=== PATIENT | male | born 1980 | race Caucasian/White ===

== ENCOUNTER 2018-09-16 23:58 | Emergency (ER) | payer SELFPAY ==
[~2018-09-16] VITALS: Ht 175.3 cm; Wt 65.8 kg
[2018-09-17 00:05] VITALS: BP 128/89
--- NOTE | 2018-09-17 03:03 | PHYS DOC ---
Adult General Chief Complaint Chief Complaint: DRUG ABUSE HPI HPI Patient is a 38-year-old male who presents with reported methamphetamine use earlier today. He states that he had just been released from [facility] and is on parole but went ahead and used methamphetamine. He states that he was planning on using again later this afternoon but then changed his mind and thought that he should come into the hospital to try to get placement for rehabilitation. Patient reports that he has an appointment with his classification officer tomorrow and is concerned that he has been using methamphetamine. He denies any homicidal or suicidal ideations. Patient is somewhat guarded to providing additional history and so additional history is limited. Review of Systems Review of Systems Constitutional: Denies fever or chills [] Respiratory: Denies cough or shortness of breath [] Cardiovascular: No additional information not addressed in HPI [] GI: Denies abdominal pain, nausea, vomiting or diarrhea [] Neurologic: Denies headache, focal weakness or sensory changes [] Psychiatric: Positive anxiety[] Unable to fully assess review of systems as patient is guarded in answering questions. Physical Exam Physical Exam Constitutional: Well developed, well nourished, no acute distress, very anxious on exam. [] HENT: Normocephalic, atraumatic, bilateral external ears normal, oropharynx moist, no oral exudates, nose normal. [] Eyes: PERRLA, EOMI, conjunctiva normal, no discharge. [] Neck: Normal range of motion, no tenderness, supple, no stridor. [] Cardiovascular: Tachycardic rate with regular rhythm[] Lungs & Thorax: Bilateral breath sounds clear to auscultation [] Abdomen: Bowel sounds normal, soft, no tenderness. [] Skin: Warm, dry, no erythema, no rash. [] Extremities: No tenderness, no cyanosis, no clubbing, ROM intact, no edema. [] Neurologic: Alert and oriented 3, no focal deficits noted. [] EKG EKG [] Radiology/Procedures Radiology/Procedures [] Course & Med Decision Making Course & Med Decision Making Pertinent Labs and Imaging studies reviewed. (See chart for details) After evaluation of patient, a mental health workup had been ordered. When death claim clerk had gone in to see patient, patient very apprehensive about answering additional questioning to death claim clerk and patient refused to sign registration paperwork. Patient's nurse along with ER physician and supervisor steffen house attempted on multiple occasions to explain paperwork that patient would needs to sign; however, patient continued to refuse to sign paperwork. Patient remained in emergency room for nearly 2-1/2 hours without signing paperwork and was ultimately informed that we would not be able to perform additional evaluation without signing paperwork and patient left the department AGAINST MEDICAL ADVICE. Dragon Disclaimer Dragon Disclaimer This electronic medical record was generated, in whole or in part, using a voice recognition dictation system. Departure Departure: Impression: Primary Impression: Methamphetamine abuse Disposition: 07 AGAINST MEDICAL ADVICE Condition: STABLE Referrals: PCP,NO (PCP) JOSE GALARZA Jr. DO Sep 17, 2018 03:03
== END 2018-09-17 02:20 | disposition left against medical advice (07) ==
LOC: ER 23:58
DX: F15.10 Other stimulant abuse, uncomplicated (principal)
CPT/HCPCS: 99281

== ENCOUNTER 2020-03-17 02:42 | Emergency (ER) | payer SELFPAY ==
[~2020-03-17] VITALS: Ht 175.3 cm; Wt 64.5 kg
--- NOTE | 2020-03-17 02:44 | PHYS DOC ---
Past History Past Medical History: Anxiety, Bipolar, Depression, Schizophrenia Past Surgical History: No Surgical History Smoking: Cigarettes Alcohol Use: Occasionally Drug Use: Amphetamine, Marijuana, Methadone, Methamphetamine General Adult HPI: HPI: ".. I am messed up.. probably need to get on program.. get back into counseling center. .. I am having hallucinations.. and paranoid...." Patient is a 39 year old male who presents with above hx and complaints of hallucinations. Patient's hallucinations consist of auditory as well as visual.. Patient also having delusions of persecution and that people are out to get him. Patient has been seen in the past for his drug abuse history. Last such visit was 09/16/2018 for methamphetamine abuse. Patient in the past has followed at the counseling center. Patient has not Follow-up at the counseling center or with a primary care. Patient does admit to methamphetamine use the last 24 hours. Pt. admits to 'shooting up meth" tonight, several " dimes". Patient is speech is pressured, and very anxious. Patient denies any fever or chills. Patient denies any history of immunosuppression. Patient denies any trauma. No recent travel outside the [place] area. Does admit to noncompliance with previous drug rehab programs and has follow-ups at the counseling center. Review of Systems: Review of Systems: Constitutional: Denies fever or chills Eyes: Denies change in visual acuity HENT: Denies nasal congestion or sore throat Respiratory: Denies cough or shortness of breath Cardiovascular: Denies chest pain or edema GI: Denies abdominal pain, nausea, vomiting, bloody stools or diarrhea : Denies dysuria Musculoskeletal: Denies back pain or joint pain Integument: Denies rash Neurologic: Denies headache, focal weakness or sensory changes Endocrine: Denies polyuria or polydipsia Lymphatic: Denies swollen glands Psychiatric: Complains of anxiety, hallucinations, Heart Score: HEART Score for Chest Pain: HEART Score for Chest Pain Response (Comments) Value History Slighlty/Non-Suspicious 0 ECG Nonspecific Repolarizatio 1 Age < 45 0 Risk Factors 1 or 2 Risk Factors 1 Troponin < Normal Limit 0 Total 2 Risk Factors: Risk Factors: DM, Current or recent (<one month) smoker, HTN, HLP, family history of CAD, obesity. Risk Scores: Score 0 - 3: 2.5% MACE over next 6 weeks - Discharge Home Score 4 - 6: 20.3% MACE over next 6 weeks - Admit for Clinical Observation Score 7 - 10: 72.7% MACE over next 6 weeks - Early Invasive Strategies Family History: Family History: Noncontributory to presentation. Current Medications: Current Meds: See nursing for home meds Allergies: Allergies: No known drug allergies Physical Exam: PE: Constitutional: In acute emotional distress, non-toxic appearance. [] HENT: Normocephalic, atraumatic, bilateral external ears normal, oropharynx moist, no oral exudates, nose normal. [] Eyes: PERRLA, EOMI, conjunctiva normal, no discharge. [] Neck: Normal range of motion, no tenderness, supple, no stridor. [] Cardiovascular: Tachycardia heart rate regular rhythm, no murmur [] Lungs & Thorax: Bilateral breath sounds equal apex with scattered wheezes auscultation [] Abdomen: Bowel sounds normal, soft, no tenderness, no masses, no pulsatile masses. [] Skin: Warm, dry, no erythema, no rash. Tattoos. Fresh injection sites antecubital spaces. Back: No tenderness, no CVA tenderness. [] Extremities: No tenderness, no cyanosis, no clubbing, ROM intact, no edema. [] Neurologic: Alert and oriented X 3, normal motor function, normal sensory function, no focal deficits noted. DTRs +2 patellar brachial. Moves all extremities on request. Mild tremor Psychologic: Affect anxious, judgement normal, mood depressed, complaints of hallucinations both auditory and visual. Complaints of delusions of persecution-paranoid EKG: EKG: My interpretation EKG shows a sinus tachycardia 117 bpm. No findings acute STEMI or contralateral changes. [] Radiology/Procedures: Radiology/Procedures: My interpretation of chest x-ray shows no findings of acute cardiopulmonary changes. No pneumothorax. Some flattening of the diaphragm. Hyperexpanded. [] Course & Med Decision Making: Course & Med Decision Making Pertinent Labs and Imaging studies reviewed. (See chart for details) Patient is to stop using methamphetamine. Patient follow-up with counseling center. Patient to resume his schizophrenic meds. Patient follow-up with primary care. Impression: 1. IV methamphetamine abuse 2. Tobacco and marijuana use 3. History of schizophrenia and schizoaffective disorder 4. History of noncompliance with medical regimens 5. Mild elevation total bilirubin 1.8 and direct 0.4 6. Mild elevation in leukocytosis 13.7 7. Hallucinations after most recent methamphetamine IV use [] Dragon Disclaimer: Dragon Disclaimer: This electronic medical record was generated, in whole or in part, using a voice recognition dictation system. Departure Departure: Disposition: 01 HOME/RESIDENCE PRIOR TO ADM Condition: STABLE Referrals: PCP,NO (PCP) Dragon Disclaimer This chart was dictated in whole or in part using Voice Recognition software in a busy, high-work load, and often noisy Emergency Department environment. It may contain unintended and wholly unrecognized errors or omissions. Dragon Disclaimer This chart was dictated in whole or in part using Voice Recognition software in a busy, high-work load, and often noisy Emergency Department environment. It may contain unintended and wholly unrecognized errors or omissions. RUCHI PALOMO MD Mar 17, 2020 02:44
[2020-03-17] MEDS ORDERED: IV RINGERS SOLUTION,LACTATED 1,000 ML IV SCH (03:00)
--- NOTE | 2020-03-17 03:07 | RAD ---
Chest AP portable at 0217: Reason for examination: Dyspnea The heart size is normal. Mediastinum is unremarkable. Lung riggs are clear. No acute bony abnormalities are seen. Impression: No acute cardiopulmonary disease. Electronically signed by: Mag Yoon MD (03/17/2020 3:04 AM) EPI
[2020-03-17] MEDS ORDERED: OLANZapine 2.5 MG TABLET PO ONE (03:45)
[2020-03-17] MEDS ORDERED: diphenhydrAMINE HCL 25 MG CAPSULE PO ONE (03:45)
[2020-03-17 03:49] LABS: CALCIUM 8.9 mg/dL (8.5-10.1); CREATININE 1.3 mg/dL (0.7-1.3); GFR 61.8; POTASSIUM 3.5 mmol/L (3.5-5.1)
[2020-03-17 03:52] LABS: BASO % 0 % (0-3); EOS % 0 % (0-3); HEMATOCRIT 41.9 % (39.0-53.0); LYMPH % 15 % (24-48); MEAN CORPUSCULAR HEMOGLOBIN 30 pg (25-35); MEAN CORPUSCULAR HGB CONC 33 g/dL (31-37); MEAN CORPUSCULAR VOLUME 89 fL (79-100); MONO # 1.1 x10^3/uL (0.0-1.1); MONO % 8 % (0-9); NEUT # 10.5 x10^3uL (1.8-7.7); NEUT % 77 % (31-73); PLATELET COUNT 272 x10^3/uL (140-400); RED BLOOD COUNT 4.69 x10^6/uL (4.30-5.70); RED CELL DISTRIBUTION WIDTH 14.1 % (11.5-14.5); WHITE BLOOD COUNT 13.7 x10^3/uL (4.0-11.0)
[2020-03-17 03:53] LABS: ALBUMIN 4.4 g/dL (3.4-5.0); DIRECT BILIRUBIN 0.4 mg/dL (0.0-0.2); MAGNESIUM 2.1 mg/dL (1.8-2.4); TOTAL BILIRUBIN 1.8 mg/dL (0.2-1.0); TOTAL PROTEIN 7.3 g/dL (6.4-8.2)
[2020-03-17 03:54] LABS: BARBITURATES NEG (NEG); BENZODIAZEPINES NEG (NEG); CANNABINOIDS NEG (NEG); COCAINE NEG (NEG); METHADONE NEG (NEG); OPIATES NEG (NEG); PHENCYCLIDINE NEG (NEG)
--- NOTE | 2020-03-17 03:59 | EKG ---
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
[2020-03-17 04:00] LABS: BILIRUBIN,URINE NEG (NEG); CLARITY,URINE CLEAR; COLOR,URINE AMBER; GLUCOSE,URINE NEG (NEG)
[2020-03-17 04:01] LABS: BACTERIA,URINE FEW /HPF (0-FEW); NITRITE,URINE POS (NEG); RBC,URINE OCC /HPF (0-2); UROBILINOGEN,URINE 0.2 mg/dL (0.2 mg/dL); WBC,URINE OCC /HPF (0-4)
[2020-03-17 04:08] LABS: AMPHETAMINE/METHAMPHETAMINE POS (NEG)
[2020-03-17 05:13] VITALS: BP 106/65
[2020-03-17] MEDS ORDERED: LIDOCAINE 1% Multi-Dose 20 ML VIAL. ONE (22:40)
[2020-03-18 12:36] LABS: SQUAMOUS EPITHELIAL CELL,UR FEW /LPF
== END 2020-03-17 05:12 | disposition home or self-care (01) ==
LOC: ER 02:42
DX: F15.10 Other stimulant abuse, uncomplicated (principal); D72.829 Elevated white blood cell count, unspecified; E80.6 Other disorders of bilirubin metabolism; F25.9 Schizoaffective disorder, unspecified; R44.1 Visual hallucinations; F41.9 Anxiety disorder, unspecified; F31.9 Bipolar disorder, unspecified; F12.10 Cannabis abuse, uncomplicated; F19.10 Other psychoactive substance abuse, uncomplicated
CPT/HCPCS: 36415; 71045; 80048; 80076; 80307; 81001; 82550; 83735; 84484; 85025; 85610; 85730; 87086; 93005; 96360; 99285; G0480; J7120; Q0163

== ENCOUNTER 2020-03-18 22:18 | Emergency (ER) | payer SELFPAY ==
[~2020-03-18] VITALS: Ht 175.3 cm; Wt 64.5 kg
--- NOTE | 2020-03-18 22:23 | PHYS DOC ---
Past History Past Medical History: Anemia, Anxiety, Bipolar, Bronchitis, Depression, Schizophrenia (RUCHI PALOMO MD) Past Surgical History: No Surgical History (RUCHI PALOMO MD) Smoking: Cigarettes Alcohol Use: Occasionally Drug Use: Amphetamine, Marijuana, Methadone, Methamphetamine, Other (RUCHI PALOMO MD) General Adult HPI: HPI: "It same thing as yesterday.. I did do some pills.. I have not use the meth in last 2 days.. I seeing stuff... "..." The hallucinations are too much.. " " I nate not us Meth for over 24 hrs now.".. " Still seeing things.. hearing thing.. I getting impulse to just kill myself .. to get it to stop... " Patient is a 39 year old male who presents with above hx and complaints of both visual and auditory hallucinations. Patient admits to recent methamphetamine abuse which caused exacerbation of his symptoms and was seen yesterday for complaints hallucination and methamphetamine abuse. Patient does give a #history of schizoaffective disorder, depression, bipolar and drug abuse. Has been admitted previously for episodes of drug abuse depression and suicidal ideation. Patient presenting to the emergency department tonight because of the confusion and hallucinations. Patient is appearance more disheveled and unkempt than last ED visit. Patient states he is having trouble in maintaining his train of thought because of hallucinations, paranoid thoughts. Patient has not follow-up at the cancer center as previously recommended. Patient has in the past been on Zyprexa to control his schizophrenia-like disorder. Patient t onight begging to talk to someone that might be able to help him get placement into drug rehab or mental hospital. Patient states he is not really want to be hospitalized but he knows that if he does not do something he is going to get worse. Patient states his judgment is completely off and is afraid he will hurt himself or someone else.. Patient advises he will not leave AGAINST MEDICAL ADVICE and will stay until he can complete his assessment. (RUCHI PALOMO MD) Review of Systems: Review of Systems: Constitutional: Denies fever or chills Eyes: Denies change in visual acuity HENT: Denies nasal congestion or sore throat Respiratory: Complaints of some wheezing. Cardiovascular: Denies chest pain or edema GI: Denies abdominal pain, nausea, vomiting, bloody stools or diarrhea : Denies dysuria Musculoskeletal: Denies back pain or joint pain Integument: Denies rash Neurologic: Denies headache, focal weakness or sensory changes Endocrine: Denies polyuria or polydipsia Lymphatic: Denies swollen glands Psychiatric: Complaints of hallucination, delusions, depression and anxiety (RUCHI PALOMO MD) Heart Score: HEART Score for Chest Pain: HEART Score for Chest Pain Response (Comments) Value History Slighlty/Non-Suspicious 0 ECG Nonspecific Repolarizatio 1 Age < 45 0 Risk Factors 1 or 2 Risk Factors 1 Troponin < Normal Limit 0 Total 2 Risk Factors: Risk Factors: DM, Current or recent (<one month) smoker, HTN, HLP, family hi story of CAD, obesity. Risk Scores: Score 0 - 3: 2.5% MACE over next 6 weeks - Discharge Home Score 4 - 6: 20.3% MACE over next 6 weeks - Admit for Clinical Observation Score 7 - 10: 72.7% MACE over next 6 weeks - Early Invasive Strategies (RUCHI PALOMO MD) Family History: Family History: Patient declines family history at this time (RUCHI PALOMO MD) Current Medications: Current Meds: Patient denies any illicit drugs in the last 24 hours did take 2 tablets of possibly Adderall yesterday, and prior to that almost daily methamphetamine use by injection. States he may have gotten some bad meth because after injecting the other day he has developed hallucinations and just organized thoughts. (RUCHI PALOMO MD) Allergies: Allergies: Allergies Coded Allergies Type Severity Reaction Last Updated Verified No Known Drug Allergies 03/17/20 No (RUCHI PALOMO MD) Physical Exam: PE: Constitutional: In acute emotional distress, non-toxic appearance. At times has a very flat affect HENT: Normocephalic, atraumatic, bilateral external ears normal, oropharynx moist, no oral exudates, nose normal. [] Eyes: PERRLA, EOMI, conjunctiva normal, no discharge. [] Neck: Normal range of motion, no tenderness, supple, no stridor. [] Cardiovascular: Tachycardia heart rate regular rhythm, no murmur [] Lungs & Thorax: Bilateral breath sounds equal at apex with scattered wheezes on auscultation [. Does have a few basilar rhonchi. Abdomen: Bowel sounds normal, soft, no tenderness, no masses, no pulsatile masses. [] Skin: Warm, dry, no erythema, no rash. [] No fresh needle davis- has old needle injection davis -primarily antecubital area on Lt. . arm and hand. Back: No tenderness, no CVA tenderness. [] Extremities: No tenderness, no cyanosis, no clubbing, ROM intact, no edema. [] Neurologic: Alert and oriented X 3, but complains of delusions and hallucinations both auditory and visual, moves all extremities on request, has distal sensory, no focal deficits noted. DTRs +2 patellar and brachial. Ambulatory. No drift. Immigration Judge equal. Psychologic: Affect agitated initially but at times very flat affect, short timeframe changes to very agitated pressured speech. Patient's where, judgement is off and he is having trouble forming his thoughts,. The patient's mood varies between very depressed to very agitated. (RUCHI PALOMO MD) EKG: EKG: My interpretation EKG shows a sinus tachycardia 113 bpm. No acute pathology noted. No findings of STEMI [] with contralateral changes. (RUCHI PALOMO MD) Radiology/Procedures: Radiology/Procedures: [][place] [address] IMAGING REPORT Signed PATIENT: EBONIE GARDNER ACCOUNT: [id number] : 1980 LOCATION: ER AGE: 39 SEX: M EXAM STATUS: REG ER ORD. PHYSICIAN: RUCHI PALOMO MD REASON: dyspnea PROCEDURE: PORTABLE CHEST 1V Study: CR PORTABLE CHEST 1V Indication: Dyspnea. Comparison: 03/17/2020 Findings: Unchanged cardiomediastinal silhouette and maty. No dense consolidation, pleural effusion or pneumothorax. Mild haziness at the lower aspect of both lungs is similar to the prior. Grossly intact osseous structures. No free air under the diaphragm. Impression: No significant interval change in the appearance of the chest. No findings to suggest an organizing pneumonia. Mild haziness at the lower aspect of both lungs but this is unchanged and not definitively pathologic. Electronically signed by: SYLVIA CLEVELAND MD (03/18/2020 10:58 PM) [id number] DICTATED AND SIGNED BY: SYLVIA CLEVELAND MD DATE: 03/18/202257 CC: RUCHI PALOMO MD; PCP,NO ~ (RUCHI PALOMO MD) Course & Med Decision Making: Course & Med Decision Making Pertinent Labs and Imaging studies reviewed. (See chart for details) See Tele- psych report. [facility] ([facility] - has bed, awaiting approval, and formal acceptance 0600. We will treat for bacterial bronchitis -start on Zithromax. With MDI 4 times a day. Plan supplemental hypo-magnesium and hypokalemia. Impression: 1. Polysubstance Abuse - Currently neg drug tox screen for ETOH, MJ or Meth. 2. Hallucinations 3. Depression 4. Suicidal ideation 5. Hypokalemia 3.0 6. Hypomagnesium 1.7 7. Bronchitis 8. Leukocytosis 11.9 [] (RUCHI PALOMO MD) Course & Med Decision Making Concern for visual hallucinations in the setting of polysubstance abuse and schizophrenia, did make vague SI comments on arrival. Chest x-ray concerning for mild lower lobe haziness unchanged from prior. Given white count of 11.9 and tachycardia on arrival, prior physician prescribed azithromycin for atypical infection. Potassium was low at 3.0 and magnesium of 1.7, mag and potassium replaced in ed. U/A wnl. Negative drug screen. Patient now stable for transfer to [facility], accepted by Dr. Macias. No acute events during my shift. ([facility],DIANA Tovar DO) Dragon Disclaimer: [place] Disclaimer: This electronic medical record was generated, in whole or in part, using a voice recognition dictation system. (RUCHI PALOMO MD) Departure Departure: Impression: Primary Impression: Visual hallucinations Additional Impressions: Suicidal ideations Polysubstance abuse Hypokalemia Disposition: 65 XFER TO PSYCH HOSP/UNIT ([facility], Dr. Macias) Condition: STABLE Referrals: PCP,NO (PCP) Complete [facility], [facility] [address] [address] [address] Patient Instructions: Hypokalemia, Schizophrenia, Substance Abuse-Brief, Visual Disturbances Additional Instructions: [facility] [address], [address] [place] [address] [facility] [address] [place] [address] [facility] [address], [address] [place] [address] EMERGENCY DEPARTMENT GENERAL DISCHARGE INSTRUCTIONS Thank you for coming to [facility] (ED) today and trusting us with you care. We trust that you had a positivie experience in our Emergency Department. If you wish to speak to the department management, you may call the director at [phone]. YOUR FOLLOW UP INSTRUCTIONS ARE FOLLOWS: 1. Do you have a private Doctor? If you do not have a private doctor, please ask for a resource list of physicians or clinics that may be able to assist you with follow up care. 2. The Emergency Physician has interpreted your x-rays. The X-Ray specialist will also review them. If there is a change in the findings, you will be notified in 48 hours when at all possible. 3. A lab test or culture has been done, your results will be reviewed and you will be notified if you need a change in treatment. ADDITIONAL INSTRUCTIONS AND INFORMATION: 1. Your care today has been supervised by a physician who is specially trained in emergency care. Many problems require more than one evaluation for a complete diagnosis and treatment. We recommend that you schedule your follow up appointment as recommended to ensure complete treatment of you illness or injury. If you are unable to obtain follow up care and continue to have a problem, or if your condition worsens, we recommend that you return to the ED. 2. We are not able to safely determine your condition over the phone nor are we able to give sound medical advice over the phone. For these safety reasons, if you call for medical advice we will ask you to come to the ED for further evaluation. 3. If you have any questions regarding these discharge instructions please call the ED at [phone]. SAFETY INFORMATION: In the interest of safety, wellness, and injury prevention; we encourage you to wear your sealbelt, if you smoke; quite smoking, and we encourage family to use a protective helmet for bicycling and other sporting events that present an increased risk for head injury. IF YOUR SYMPTOMS WORSEN OR NEW SYMPTOMS DEVELOP, OR YOU HAVE CONCERNS ABOUT YOUR CONDITION; OR IF YOUR CONDITION WORSENS WHILE YOU ARE WAITING FOR YOUR FOLLOW UP APPOINTMENT; EITHER CONTACT YOUR PRIMARY CARE DOCTOR, THE PHYSICIAN WHOSE NAME AND NUMBER YOU WERE GIVEN, OR RETURN TO THE ED IMMEDIATELY. Scripts Azithromycin (ZITHROMAX) 250 Mg Tablet 250 MG PO DAILY for ANTI-BIOTIC for 5 Days, #5 TAB 0 Refills Prov: RUCHI PALOMO MD 03/19/20 Samuel Disclaimer This chart was dictated in whole or in part using Voice Recognition software in a busy, high-work load, and often noisy Emergency Department environment. It may contain unintended and wholly unrecognized errors or omissions. (RUCHI PALOMO MD) RUCHI PALOMO MD Mar 18, 2020 22:22 DIANA BISWAS DO Mar 19, 2020 08:10
[2020-03-18] MEDS ORDERED: IV RINGERS SOLUTION,LACTATED 1,000 ML IV SCH (22:30)
[2020-03-18 23:01] LABS: BASO # 0.1 x10^3/uL (0.0-0.2); BASO % 0 % (0-3); EOS % 0 % (0-3); HEMATOCRIT 36.7 % (39.0-53.0); HEMOGLOBIN 12.1 g/dL (13.0-17.5); LYMPH # 1.3 x10^3/uL (1.0-4.8); LYMPH % 11 % (24-48); MEAN CORPUSCULAR HEMOGLOBIN 30 pg (25-35); MEAN CORPUSCULAR HGB CONC 33 g/dL (31-37); MEAN CORPUSCULAR VOLUME 90 fL (79-100); MONO # 0.8 x10^3/uL (0.0-1.1); MONO % 6 % (0-9); NEUT # 9.8 x10^3uL (1.8-7.7); NEUT % 82 % (31-73); PLATELET COUNT 227 x10^3/uL (140-400); RED BLOOD COUNT 4.06 x10^6/uL (4.30-5.70); RED CELL DISTRIBUTION WIDTH 14.4 % (11.5-14.5); WHITE BLOOD COUNT 11.9 x10^3/uL (4.0-11.0)
--- NOTE | 2020-03-18 23:01 | RAD ---
Study: CR PORTABLE CHEST 1V Indication: Dyspnea. Comparison: 03/17/2020 Findings: Unchanged cardiomediastinal silhouette and maty. No dense consolidation, pleural effusion or pneumothorax. Mild haziness at the lower aspect of both lungs is similar to the prior. Grossly intact osseous structures. No free air under the diaphragm. Impression: No significant interval change in the appearance of the chest. No findings to suggest an organizing pneumonia. Mild haziness at the lower aspect of both lungs but this is unchanged and not definitively pathologic. Electronically signed by: SYLVIA CLEVELAND MD (03/18/2020 10:58 PM) [id number]
[2020-03-18 23:09] LABS: CALCIUM 8.4 mg/dL (8.5-10.1); CREATININE 1.2 mg/dL (0.7-1.3); GFR 67.8
[2020-03-18 23:21] LABS: ALBUMIN 3.5 g/dL (3.4-5.0); DIRECT BILIRUBIN 0.2 mg/dL (0.0-0.2); MAGNESIUM 1.7 mg/dL (1.8-2.4); TOTAL BILIRUBIN 0.6 mg/dL (0.2-1.0); TOTAL PROTEIN 6.1 g/dL (6.4-8.2)
[2020-03-18 23:58] LABS: AMPHETAMINE/METHAMPHETAMINE NEG (NEG); BARBITURATES NEG (NEG); BENZODIAZEPINES NEG (NEG); CANNABINOIDS NEG (NEG); COCAINE NEG (NEG); METHADONE NEG (NEG); OPIATES NEG (NEG); PHENCYCLIDINE NEG (NEG)
[2020-03-19 00:12] LABS: BACTERIA,URINE 0 /HPF (0-FEW); BILIRUBIN,URINE NEG (NEG); CLARITY,URINE CLEAR; COLOR,URINE YELLOW; GLUCOSE,URINE NEG (NEG); NITRITE,URINE NEG (NEG); RBC,URINE 0 /HPF (0-2); UROBILINOGEN,URINE 0.2 mg/dL (0.2 mg/dL); WBC,URINE OCC /HPF (0-4)
[2020-03-19 00:13] LABS: SQUAMOUS EPITHELIAL CELL,UR OCC /LPF
[2020-03-19] MEDS ORDERED: MVI, ADULT NO.4 WITH VIT K 10 ML, THIAMINE INJ 100 MG in IV RINGERS SOLUTION,LACTATED 1... IV ONE (00:15)
[2020-03-19] MEDS ORDERED: ALBUTEROL SULFATE 8GM INHALER. INH ONE ×2 (00:15→06:15)
[2020-03-19] MEDS ORDERED: FOLIC ACID 1 MG TABLET PO ONE (00:15)
[2020-03-19] MEDS ORDERED: MAGNESIUM SULFATE 2GM 50 ML IV ONE (00:15)
[2020-03-19] MEDS ORDERED: AZITHROMYCIN 250 MG TABLET. PO ONE (00:15)
[2020-03-19] MEDS ORDERED: IV NORMAL SALINE 50ML 0 ML ONE (00:54)
[2020-03-19] MEDS ORDERED: cefTRIAXone SODIUM 1 GM VIAL ONE ×2 (00:55→02:01)
[2020-03-19] MEDS ORDERED: THIAMINE 200 MG/2 ML VIAL. IV ONE (00:55)
[2020-03-19] MEDS ORDERED: MVI, ADULT NO.4 WITH VIT K 10 ML VIAL IV ONE (00:55)
[2020-03-19] MEDS ORDERED: IV NORMAL SALINE 50ML 50 ML ONE (02:00)
[2020-03-19 03:12] LABS: POTASSIUM 3.2 mmol/L (3.5-5.1)
[2020-03-19] MEDS ORDERED: POTASSIUM CHLORIDE 20 MEQ TABLET.ER. PO ONE ×2 (04:00)
[2020-03-19] MEDS ORDERED: AZIT250T PO (06:01)
--- NOTE | 2020-03-19 06:42 | EKG ---
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
[2020-03-19 09:49] VITALS: BP 109/79
== END 2020-03-19 09:53 ==
LOC: ER 22:18
DX: F10.229 Alcohol dependence with intoxication, unspecified (principal); F12.10 Cannabis abuse, uncomplicated; F15.10 Other stimulant abuse, uncomplicated; R44.1 Visual hallucinations; R45.851 Suicidal ideations; E87.6 Hypokalemia; J40 Bronchitis, not specified as acute or chronic; D64.89 Other specified anemias; E83.42 Hypomagnesemia; F41.9 Anxiety disorder, unspecified; F31.9 Bipolar disorder, unspecified; F20.9 Schizophrenia, unspecified; F17.210 Nicotine dependence, cigarettes, uncomplicated; F19.10 Other psychoactive substance abuse, uncomplicated; Z86.2 Personal history of diseases of the blood and blood-forming organs and certain disorders involving the immune mechanism; Y90.0 Blood alcohol level of less than 20 mg/100 ml
CPT/HCPCS: 36415; 71045; 80048; 80051; 80076; 80307; 81001; 82550; 83690; 83735; 83880; 84443; 84484; 85025; 85610; 85730; 87040; 93005; 94640; 96361; 96365; 96366; 96368; 99285; G0480; J0456; J0696; J3475; J7120; J7613; 94664

== ENCOUNTER 2020-03-25 15:48 | Emergency (ER) | payer SELFPAY ==
[~2020-03-25] VITALS: Ht 175.3 cm; Wt 64.5 kg
[~2020-03-25 15:48] MED LIST: AZIT250T PO
[2020-03-25] MEDS ORDERED: DIPH,PERTUSS(ACELL),TET VAC/PF 0.5 ML SYRINGE. VAX IM ONE ×2 (16:09→16:15)
[2020-03-25] MEDS ORDERED: IV NORMAL SALINE 50ML 50 ML ONE (16:12)
[2020-03-25] MEDS ORDERED: cefTRIAXone SODIUM 1 GM VIAL ONE (16:12)
[2020-03-25 16:19] LABS: BASO % 0 % (0-3); EOS % 0 % (0-3); HEMATOCRIT 38.5 % (39.0-53.0); HEMOGLOBIN 12.8 g/dL (13.0-17.5); LYMPH # 1.6 x10^3/uL (1.0-4.8); LYMPH % 18 % (24-48); MEAN CORPUSCULAR HEMOGLOBIN 30 pg (25-35); MEAN CORPUSCULAR HGB CONC 33 g/dL (31-37); MEAN CORPUSCULAR VOLUME 90 fL (79-100); MONO # 0.8 x10^3/uL (0.0-1.1); MONO % 9 % (0-9); NEUT # 6.4 x10^3uL (1.8-7.7); NEUT % 72 % (31-73); PLATELET COUNT 243 x10^3/uL (140-400); RED BLOOD COUNT 4.27 x10^6/uL (4.30-5.70); RED CELL DISTRIBUTION WIDTH 14.6 % (11.5-14.5); WHITE BLOOD COUNT 8.8 x10^3/uL (4.0-11.0)
[2020-03-25 16:26] LABS: CALCIUM 8.6 mg/dL (8.5-10.1); GFR 83.6; POTASSIUM 3.9 mmol/L (3.5-5.1)
[2020-03-25] MEDS ORDERED: IV NORMAL SALINE 1,000ML 1,000 ML IV ONE (16:30)
[2020-03-25 16:32] LABS: ALBUMIN 3.9 g/dL (3.4-5.0); ALBUMIN/GLOBULIN RATIO 1.4 (1.0-1.7); TOTAL BILIRUBIN 1.4 mg/dL (0.2-1.0); TOTAL PROTEIN 6.6 g/dL (6.4-8.2)
--- NOTE | 2020-03-25 16:45 | PHYS DOC ---
Past History Past Medical History: Anemia, Anxiety, Bipolar, Bronchitis, Depression, Schizophrenia (DARRELL BENAVIDEZ DO) Past Medical History: Anxiety, Bipolar, Bronchitis, Depression, Schizophrenia (RUCHI REDDING MD) Past Surgical History: No Surgical History (DARRELL BENAVIDEZ DO) Smoking: Cigarettes Alcohol Use: None Drug Use: Amphetamine, Marijuana, Methadone, Methamphetamine, Other (DARRELL BENAVIDEZ DO) Smoking: Cigarettes Alcohol Use: Occasionally Drug Use: Amphetamine, Marijuana, Methamphetamine (RUCHI REDDING MD) General Adult EDM: Chief Complaint: LACERATION/AVULSION HPI: HPI: 39-year-old male presents via EMS after attempted suicide. The patient took a small pocket knife and cut the right side of his neck. The bleeding was controlled prior to arrival. He tells me that the cath across his neck did not stab into his neck. Patient has schizoaffective disorder and had methamphetamines yesterday. He has not been taking his psychiatric medications. He tells me that he has delusions and they have been telling him to hurt himself. He thought it would protect other people. He has attempted suicide in the past. He has been admitted to a psychiatric facility. He denies fever or chills. He has no other complaints except for the lacerations and suicidal ideation. (DARRELL BENAVIDEZ DO) Review of Systems: Review of Systems: Constitutional: Denies fever or chills Eyes: Denies change in visual acuity HENT: Denies nasal congestion or sore throat Respiratory: Denies cough or shortness of breath Cardiovascular: Denies chest pain or edema GI: Denies abdominal pain, nausea, vomiting, bloody stools or diarrhea : Denies dysuria Musculoskeletal: Denies back pain or joint pain Integument: Lacerations of the right anterior neck Neurologic: Denies headache, focal weakness or sensory changes Endocrine: Denies polyuria or polydipsia Lymphatic: Denies swollen glands Psychiatric: Suicidal (DARRELL BENAVIDEZ DO) Heart Score: Risk Factors: Risk Factors: DM, Current or recent (<one month) smoker, HTN, HLP, family history of CAD, obesity. Risk Scores: Score 0 - 3: 2.5% MACE over next 6 weeks - Discharge Home Score 4 - 6: 20.3% MACE over next 6 weeks - Admit for Clinical Observation Score 7 - 10: 72.7% MACE over next 6 weeks - Early Invasive Strategies (DARRELL BENAVIDEZ DO) HEART Score for Chest Pain: HEART Score for Chest Pain Response (Comments) Value History Slighlty/Non-Suspicious 0 ECG Nonspecific Repolarizatio 1 Age < 45 0 Risk Factors 1 or 2 Risk Factors 1 Troponin < Normal Limit 0 Total 2 Current Medications: Current Meds: Current Medications Medications (Trade) Dose Ordered Sig/Louisa Start Time Stop Time Status Last Admin Dose Admin Ceftriaxone Sodium 1 gm/ Sodium Chloride 50 ml @ 100 mls/hr 1X ONCE 03/25/20 16:15 03/25/20 16:44 03/25/20 16:33 100 MLS/HR Ceftriaxone Sodium (Rocephin) 1 gm STK-MED ONCE 03/25/20 16:12 03/25/20 16:12 DC Diphtheria/ Pertussis/Tetanus Vacc (ADACEL TDap SYRINGE) 0.5 ml ONCE ONCE 03/25/20 16:15 03/25/20 16:22 DC 03/25/20 16:34 0.5 ML Lorazepam (Ativan Inj) 2 mg 1X ONCE 03/25/20 16:00 03/25/20 16:01 DC 03/25/20 16:06 2 MG Sodium Chloride 1,000 ml @ 1,000 mls/hr 1X ONCE 03/25/20 16:30 03/25/20 17:29 UNV 03/25/20 16:35 1,000 MLS/HR (DARRELL BENAVIDEZ DO) Allergies: Allergies: Allergies Coded Allergies Type Severity Reaction Last Updated Verified No Known Drug Allergies 03/17/20 No (DARRELL BENAVIDEZ DO) Physical Exam: PE: Constitutional: Well developed, well nourished, mild acute distress, non-toxic appearance. [] HENT: Normocephalic, atraumatic, bilateral external ears normal, oropharynx moist, no oral exudates, nose normal. [] Eyes: PERRLA, EOMI, conjunctiva normal, no discharge. [] Neck: Normal range of motion, no tenderness, supple, no stridor. [] Cardiovascular: Heart rate 123, regular rhythm, no murmur [] Lungs & Thorax: Bilateral breath sounds clear to auscultation [] Abdomen: Bowel sounds normal, soft, no tenderness, no masses, no pulsatile masses. [] Skin: 3 superficial lacerations of the right anterior neck [] Back: No tenderness, no CVA tenderness. [] Extremities: No tenderness, no cyanosis, no clubbing, ROM intact, no edema. [] Neurologic: Alert and oriented X 3, normal motor function, normal sensory function, no focal deficits noted. [] Psychologic: Affect normal, judgement compromised mood suicidal. [] (DARRELL BENAVIDEZ DO) Current Patient Data: Labs: Laboratory Tests Test 03/25/20 15:55 White Blood Count 8.8 x10^3/uL (4.0-11.0) Red Blood Count 4.27 x10^6/uL (4.30-5.70) L Hemoglobin 12.8 g/dL (13.0-17.5) L Hematocrit 38.5 % (39.0-53.0) L Mean Corpuscular Volume 90 fL (79-100) Mean Corpuscular Hemoglobin 30 pg (25-35) Mean Corpuscular Hemoglobin Concent 33 g/dL (31-37) Red Cell Distribution Width 14.6 % (11.5-14.5) H Platelet Count 243 x10^3/uL (140-400) Neutrophils (%) (Auto) 72 % (31-73) Lymphocytes (%) (Auto) 18 % (24-48) L Monocytes (%) (Auto) 9 % (0-9) Eosinophils (%) (Auto) 0 % (0-3) Basophils (%) (Auto) 0 % (0-3) Neutrophils # (Auto) 6.4 x10^3uL (1.8-7.7) Lymphocytes # (Auto) 1.6 x10^3/uL (1.0-4.8) Monocytes # (Auto) 0.8 x10^3/uL (0.0-1.1) Eosinophils # (Auto) 0.0 x10^3/uL (0.0-0.7) Basophils # (Auto) 0.0 x10^3/uL (0.0-0.2) Sodium Level 138 mmol/L (136-145) Potassium Level 3.9 mmol/L (3.5-5.1) Chloride Level 103 mmol/L (98-107) Carbon Dioxide Level 26 mmol/L (21-32) Anion Gap 9 (6-14) Blood Urea Nitrogen 19 mg/dL (8-26) Creatinine 1.0 mg/dL (0.7-1.3) Estimated GFR (Cockcroft-Gault) 83.6 BUN/Creatinine Ratio 19 (6-20) Glucose Level 93 mg/dL (70-99) Calcium Level 8.6 mg/dL (8.5-10.1) Total Bilirubin 1.4 mg/dL (0.2-1.0) H Aspartate Amino Transferase (AST) 22 U/L (15-37) Alanine Aminotransferase (ALT) 16 U/L (16-63) Alkaline Phosphatase 51 U/L (46-116) Total Protein 6.6 g/dL (6.4-8.2) Albumin 3.9 g/dL (3.4-5.0) Albumin/Globulin Ratio 1.4 (1.0-1.7) Vital Signs: Vital Signs Date Time Temp Pulse Resp B/P (MAP) Pulse Ox O2 Delivery O2 Flow Rate FiO2 03/25/20 16:00 98.0 122 24 153/64 (93) 100 (DARRELL BENAVIDEZ DO) EKG: EKG: [] (DARRELL BENAVIDEZ DO) EKG: My interpretation EKG shows a sinus tachycardia 126 bpm no findings of acute morphology. No findings of STEMI with contralateral changes (RUCHI REDDING MD) Radiology/Procedures: Radiology/Procedures: [] (DARRELL BENAVIDEZ DO) Radiology/Procedures: [address] [address] IMAGING REPORT Signed PATIENT: EBONIE GARDNER ACCOUNT: [id number] : 1980 LOCATION: ER AGE: 39 SEX: M EXAM STATUS: REG ER ORD. PHYSICIAN: DARRELL BENAVIDEZ DO REASON: psych PROCEDURE: CHEST AP ONLY EXAM: Chest, single view. HISTORY: Psych evaluation. Suicide attempt. COMPARISON: 03/18/2020 FINDINGS: A frontal view of the chest is obtained. There is no infiltrate, pleural effusion or pneumothorax. The heart is normal in size. IMPRESSION: No acute pulmonary finding. Electronically signed by: Caridad Cabrera MD (03/25/2020 5:42 PM) [facility] DICTATED AND SIGNED BY: CARIDAD CABRERA MD DATE: 03/25/201741 CC: DARRELL BENAVIDEZ DO; PCP,NO ~ IMAGING REPORT Signed PATIENT: EBONIE GARDNER ACCOUNT: [id number] : 1980 LOCATION: ER AGE: 39 SEX: M EXAM STATUS: REG ER ORD. PHYSICIAN: DARRELL BENAVIDEZ DO REASON: suicide attempt, laceration of neck PROCEDURE: CT ANGIOGRAPHY NECK EXAM: CT angiogram of the neck. HISTORY: Neck laceration. Suicide attempt. TECHNIQUE: Computed tomographic images of the neck were obtained following the administration of intravenous contrast. 3-dimensional maximum intensity projection images were obtained *One or more of the following individualized dose reduction techniques were utilized for this examination: 1. Automated exposure control. 2. Adjustment of the mA and/or kV according to patient size. 3. Use of iterative reconstruction technique. COMPARISON: None. FINDINGS: There is linear hyperdensity along the skin of the anterior inferior right neck possibly due to a laceration wound closing material. There is slight thickening of the skin in this location likely due to edema. No active extravasation is seen to suggest vascular injury. No drainable collection or soft tissue gas is seen. The visualized portions of the brain demonstrate no mass effect or midline shift. There is no hydrocephalus. No suspicious enhancing lesion is seen. There is a chronic left lamina papyracea fracture. There are chronic nasal bone fractures. There is a tiny left maxillary sinus mucous retention cyst or focal mucosal thickening. There are incidental restorations. The mastoid air cells are clear. The airways midline and widely patent. The carotid bifurcations are widely patent. The thyroid is unremarkable. There is no lymphadenopathy. There is no suspicious osseous lesion or acute finding involving the upper lobes of the lungs. There is cervical kyphosis which is degenerative or positional. IMPRESSION: Suspected laceration wound closing material within the anterior inferior right neck. No extravasation is seen to suggest vascular injury and there is no soft tissue gas or subcutaneous foreign body. PQRS Compliance Statement - Stenosis calculations for CT, MR and conventional angiography are based upon measurement of the distal ICA diameter in accordance with the NASCET methodology. Stenosis calculations for carotid ultrasound studies are derived from validated velocity criteria which are known to correlate with the NASCET methodology. Electronically signed by: Caridad Cabrera MD (03/25/2020 5:42 PM) [facility] DICTATED AND SIGNED BY: CARIDAD CABRERA MD DATE: 03/25/201741 CC: DARRELL BENAVIDEZ DO; PCP,NO ~ (RUCHI REDDING MD) Course & Med Decision Making: Course & Med Decision Making Pertinent Labs and Imaging studies reviewed. (See chart for details) The patient's lacerations appear to be superficial. I will CT his neck out of an abundance of caution. I cauterized the base of 1 of the wounds and part of another. The bleeding is controlled at this time. The lacerations are close enough together that they are not really amenable to suture. The skin in between is likely not to hold well. These may just have to heal by secondary intention. They were covered with a clean dry dressing. The patient's hemoglobin is 12.8. I have given him a liter normal saline. His urinalysis is negative for infection. His other lab work is unremarkable. His drug screen is positive for methamphetamines. I believe he is medically stable for behavioral health evaluation. I am signing the patient out to Dr. Redding at 1800. [] (DARRELL BENAVIDEZ DO) Course & Med Decision Making Laceration-see Dr. Benavidez's chart for details of laceration care-right side of neck See Dr. Benavidez's chart for care prior to shift change. Patient advised he seeing" Andrade s", " Shadows". . Pt. states the " Shadows told him to cut his throat.. or his family would " See Psych. report [facility] are refusing to consider pt. unless he has a Rapid COVID. 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 reports increased " bad thoughts"...becoming more agitated. States the " Rick are coming back.".. Voices are more intense. . Will give Zyprexa and Ativan. [place]- may have opening at shift change 0700 Impression: 1. Depression 2. Suicidal ideation 3. Suicide attempt by cutting his throat- 4. History of schizophrenia-with both auditory and visual hallucinations 5. History of bipolar 6. Polysubstance abuse positive meth drug screen tonight 7. Tobacco use 8. Mild elevation of bilirubin 1.4 9. Recent Psych eval and admission to [facility]. (RUCHI REDDING MD) Samuel Disclaimer: Samuel Disclaimer: This electronic medical record was generated, in whole or in part, using a voice recognition dictation system. (DARRELL BENAVIDEZ DO) Departure Departure: Impression: Primary Impression: Suicide attempt Disposition: 65 DC/TRF TO PSYCH HOSP Condition: STABLE Referrals: PCP,NO (PCP) Samuel Disclaimer This chart was dictated in whole or in part using Voice Recognition software in a busy, high-work load, and often noisy Emergency Department environment. It may contain unintended and wholly unrecognized errors or omissions. (RUCHI REDDING MD) DARRELL BENAVIDEZ DO Mar 25, 2020 16:45 RUCHI REDDING MD Mar 25, 2020 18:50
[2020-03-25] MEDS ORDERED: IOHEXOL 350 MG/ML 100 ML VIAL. IV ONE (17:00)
[2020-03-25] MEDS ORDERED: CONTRAST GIVEN. MC PRN (17:00)
[2020-03-25 17:31] LABS: AMPHETAMINE/METHAMPHETAMINE POS (NEG); BARBITURATES NEG (NEG); BENZODIAZEPINES NEG (NEG); CANNABINOIDS NEG (NEG); COCAINE NEG (NEG); METHADONE NEG (NEG); OPIATES NEG (NEG); PHENCYCLIDINE NEG (NEG)
--- NOTE | 2020-03-25 17:31 | EKG ---
[facility] ED [facility] [place] [id number] Test Date: 2020-03-25 Test Time: 16:43:08 Pat Name: EBONIE GARDNER Department: Room: Gender: M [employer]: : 1980 Requested By: DARRELL BENAVIDEZ Order Number: [id number] Reading MD: Kaveh Salazar MD Measurements Intervals [place] Rate: 126 P: -61 MI: 114 QRS: 63 QRSD: 88 T: 83 QT: 354 QTc: 513 Interpretive Statements SINUS TACHYCARDIA Electronically Signed On 03-26-2020 14:13:56 CDT by Kaveh Salazar MD
[2020-03-25 17:43] LABS: CLARITY,URINE CLEAR; COLOR,URINE AMBER
[2020-03-25 17:44] LABS: BILIRUBIN,URINE SMALL (NEG); GLUCOSE,URINE NEG (NEG)
--- NOTE | 2020-03-25 17:45 | RAD ---
EXAM: Chest, single view. HISTORY: Psych evaluation. Suicide attempt. COMPARISON: 03/18/2020 FINDINGS: A frontal view of the chest is obtained. There is no infiltrate, pleural effusion or pneumothorax. The heart is normal in size. IMPRESSION: No acute pulmonary finding. Electronically signed by: Caridad Tomas MD (03/25/2020 5:42 PM) [facility]
--- NOTE | 2020-03-25 17:45 | RAD ---
EXAM: CT angiogram of the neck. HISTORY: Neck laceration. Suicide attempt. TECHNIQUE: Computed tomographic images of the neck were obtained following the administration of intravenous contrast. 3-dimensional maximum intensity projection images were obtained *One or more of the following individualized dose reduction techniques were utilized for this examination: 1. Automated exposure control. 2. Adjustment of the mA and/or kV according to patient size. 3. Use of iterative reconstruction technique. COMPARISON: None. FINDINGS: There is linear hyperdensity along the skin of the anterior inferior right neck possibly due to a laceration wound closing material. There is slight thickening of the skin in this location likely due to edema. No active extravasation is seen to suggest vascular injury. No drainable collection or soft tissue gas is seen. The visualized portions of the brain demonstrate no mass effect or midline shift. There is no hydrocephalus. No suspicious enhancing lesion is seen. There is a chronic left lamina papyracea fracture. There are chronic nasal bone fractures. There is a tiny left maxillary sinus mucous retention cyst or focal mucosal thickening. There are incidental restorations. The mastoid air cells are clear. The airways midline and widely patent. The carotid bifurcations are widely patent. The thyroid is unremarkable. There is no lymphadenopathy. There is no suspicious osseous lesion or acute finding involving the upper lobes of the lungs. There is cervical kyphosis which is degenerative or positional. IMPRESSION: Suspected laceration wound closing material within the anterior inferior right neck. No extravasation is seen to suggest vascular injury and there is no soft tissue gas or subcutaneous foreign body. PQRS Compliance Statement - Stenosis calculations for CT, MR and conventional angiography are based upon measurement of the distal ICA diameter in accordance with the NASCET methodology. Stenosis calculations for carotid ultrasound studies are derived from validated velocity criteria which are known to correlate with the NASCET methodology. Electronically signed by: Caridad Tomas MD (03/25/2020 5:42 PM) [facility]
[2020-03-25 17:48] LABS: NITRITE,URINE NEG (NEG); UROBILINOGEN,URINE 0.2 mg/dL (0.2 mg/dL)
[2020-03-25 17:49] LABS: BACTERIA,URINE 0 /HPF (0-FEW); WBC,URINE 0 /HPF (0-4)
[2020-03-26] MEDS ORDERED: LORazepam 1 MG TABLET PO ONE ×3 (01:00→18:45)
[2020-03-26] MEDS ORDERED: OLANZapine 2.5 MG TABLET PO ONE (01:00)
[2020-03-26] MEDS ORDERED: LORazepam 1 MG TABLET ONE (12:48)
[2020-03-26] MEDS: OLANZapine 2.5 MG TABLET PO ONE ×2 (19:06→19:16)
[2020-03-26] MEDS ORDERED: NICOTINE 14MG PATCH. TD ONE (20:00)
[2020-03-27 07:30] VITALS: BP 114/77
[2020-03-27] MEDS ORDERED: LORazepam 1 MG TABLET PO ONE (07:45)
== END 2020-03-27 09:57 ==
LOC: ER 15:48
DX: S11.81XA Laceration without foreign body of other specified part of neck, initial encounter (principal); T14.91XA Suicide attempt, initial encounter; F31.9 Bipolar disorder, unspecified; F20.9 Schizophrenia, unspecified; Z20.828 Contact with and (suspected) exposure to other viral communicable diseases; F19.10 Other psychoactive substance abuse, uncomplicated; Z72.0 Tobacco use; R79.89 Other specified abnormal findings of blood chemistry; X99.1XXA Assault by knife, initial encounter; Y93.89 Activity, other specified; Y92.89 Other specified places as the place of occurrence of the external cause; Y99.8 Other external cause status
CPT/HCPCS: 36415; 70498; 71045; 80053; 80307; 81001; 84484; 85025; 87426; 90471; 90715; 93005; 96365; 96375; 99285; J0696; J2060; J7030; Q9967; U0003

== ENCOUNTER 2020-04-07 19:08 | Emergency (ER) | payer SELFPAY ==
[~2020-04-07] VITALS: Ht 175.3 cm; Wt 66.8 kg
[2020-04-07 19:15] VITALS: BP 128/78
[2020-04-07] MEDS ORDERED: ESCITALOPRAM OX10 MG PO (19:39)
[2020-04-07] MEDS ORDERED: PALI117D IM (19:39)
[2020-04-07] MEDS ORDERED: MELA10TA7 PO (19:39)
[2020-04-07] MEDS ORDERED: buspar PO (19:39)
--- NOTE | 2020-04-07 19:39 | PHYS DOC ---
Past History Past Medical History: Anxiety, Bipolar, Bronchitis, Depression, Schizophrenia Past Surgical History: No Surgical History Smoking: Cigarettes Alcohol Use: Occasionally Drug Use: Amphetamine, Marijuana, Methamphetamine General Adult EDM: Chief Complaint: HAND PROBLEM HPI: HPI: 39-year-old male presents with left hand pain. The patient slipped 2 days ago when it was raining and fell onto his hand. He did not really have pain at that time, but he has swollen more over the last 2 days. He is able to flex and extend, but it is painful with extension. He denies any numbness, tingling, or altered sensation. He denies any other injuries. Review of Systems: Review of Systems: Constitutional: Denies fever or chills Eyes: Denies change in visual acuity HENT: Denies nasal congestion or sore throat Respiratory: Denies cough or shortness of breath Cardiovascular: Denies chest pain or edema GI: Denies abdominal pain, nausea, vomiting, bloody stools or diarrhea : Denies dysuria Musculoskeletal: Left hand pain Integument: Denies rash Neurologic: Denies headache, focal weakness or sensory changes Endocrine: Denies polyuria or polydipsia Lymphatic: Denies swollen glands Psychiatric: Denies depression or anxiety Allergies: Allergies: Allergies Coded Allergies Type Severity Reaction Last Updated Verified No Known Drug Allergies 04/07/20 No Physical Exam: PE: Constitutional: Well developed, well nourished, no acute distress, non-toxic appearance. [] HENT: Normocephalic, atraumatic, bilateral external ears normal, oropharynx moist, no oral exudates, nose normal. [] Eyes: PERRLA, EOMI, conjunctiva normal, no discharge. [] Neck: Normal range of motion, no tenderness, supple, no stridor. [] Cardiovascular:Heart rate regular rhythm, no murmur [] Lungs & Thorax: Bilateral breath sounds clear to auscultation [] Abdomen: Bowel sounds normal, soft, no tenderness, no masses, no pulsatile masses. [] Skin: Warm, dry, no erythema, no rash. [] Back: No tenderness, no CVA tenderness. [] Extremities: Dorsal left hand with swelling over fourth and fifth metacarpals, mild tenderness to palpation. [] Neurologic: Alert and oriented X 3, normal motor function, normal sensory function, no focal deficits noted. [] Psychologic: Affect normal, judgement normal, mood normal. [] EKG: EKG: [] Radiology/Procedures: Radiology/Procedures: [] Impressions: Exam: Left hand 3 views INDICATION: Fall, pain TECHNIQUE: Frontal, lateral and oblique views of the left hand Comparisons: None FINDINGS: Bone mineralization is normal. No acute or healed fractures. Soft tissues are unremarkable. Joint spaces are well-maintained. IMPRESSION: No acute osseous abnormality. Electronically signed by: Florian Cosme MD (04/07/2020 8:51 PM) [id number] DICTATED AND SIGNED BY: FLORIAN COSME MD DATE: 04/07/202050 CC: DARRELL BENAVIDEZ DO; PCP,NO ~ Heart Score: Risk Factors: Risk Factors: DM, Current or recent (<one month) smoker, HTN, HLP, family history of CAD, obesity. Risk Scores: Score 0 - 3: 2.5% MACE over next 6 weeks - Discharge Home Score 4 - 6: 20.3% MACE over next 6 weeks - Admit for Clinical Observation Score 7 - 10: 72.7% MACE over next 6 weeks - Early Invasive Strategies Course & Med Decision Making: Course & Med Decision Making Pertinent Labs and Imaging studies reviewed. (See chart for details) Patient's x-ray is negative for fracture. This is just a contusion. He will improve on its own. He is stable for discharge at this time. [] Dragon Disclaimer: Dragon Disclaimer: This electronic medical record was generated, in whole or in part, using a voice recognition dictation system. Departure Departure: Impression: Primary Impression: Contusion of left hand Qualified Codes: S60.222A - Contusion of left hand, initial encounter Disposition: 01 DC HOME SELF CARE/HOMELESS Condition: STABLE Referrals: PCP,NO (PCP) Patient Instructions: Hand Contusion, [id number] DARRELL BENAVIDEZ DO Apr 07, 2020 19:39
--- NOTE | 2020-04-07 20:54 | RAD ---
Exam: Left hand 3 views INDICATION: Fall, pain TECHNIQUE: Frontal, lateral and oblique views of the left hand Comparisons: None FINDINGS: Bone mineralization is normal. No acute or healed fractures. Soft tissues are unremarkable. Joint spaces are well-maintained. IMPRESSION: No acute osseous abnormality. Electronically signed by: Max Burger MD (04/07/2020 8:51 PM) [id number]
== END 2020-04-07 21:10 | disposition home or self-care (01) ==
LOC: ER 19:08
DX: S60.222A Contusion of left hand, initial encounter (principal); R60.0 Localized edema; F41.9 Anxiety disorder, unspecified; F32.9 Major depressive disorder, single episode, unspecified; F20.9 Schizophrenia, unspecified; F17.210 Nicotine dependence, cigarettes, uncomplicated; F12.90 Cannabis use, unspecified, uncomplicated; F19.90 Other psychoactive substance use, unspecified, uncomplicated; W18.39XA Other fall on same level, initial encounter; Y93.89 Activity, other specified; Y92.89 Other specified places as the place of occurrence of the external cause; Y99.8 Other external cause status
CPT/HCPCS: 73130; 99284

== ENCOUNTER 2020-07-03 20:21 | Emergency (ER) | payer SELFPAY ==
[~2020-07-03] VITALS: Ht 175.3 cm; Wt 69.5 kg
[2020-07-03 20:21] VITALS: BP 162/102
[~2020-07-03 20:21] MED LIST changes: +ESCITALOPRAM OX10 MG PO; +MELA10TA7 PO; +PALI117D IM; +buspar PO
[2020-07-03] MEDS ORDERED: MIDAZOLAM HCL PF 5 MG/5 ML VIAL. IM ONE (21:15)
[2020-07-03] MEDS ORDERED: HALOPERIDOL LACT 5 MG/ML VIAL. IM ONE (21:15)
[2020-07-03 21:22] LABS: BASO % 0 % (0-3); EOS % 0 % (0-3); HEMATOCRIT 44.8 % (39.0-53.0); HEMOGLOBIN 15.1 g/dL (13.0-17.5); LYMPH # 2.9 x10^3/uL (1.0-4.8); LYMPH % 27 % (24-48); MEAN CORPUSCULAR HEMOGLOBIN 30 pg (25-35); MEAN CORPUSCULAR HGB CONC 34 g/dL (31-37); MEAN CORPUSCULAR VOLUME 88 fL (79-100); MONO # 0.7 x10^3/uL (0.0-1.1); MONO % 7 % (0-9); NEUT # 7.1 x10^3uL (1.8-7.7); NEUT % 65 % (31-73); PLATELET COUNT 290 x10^3/uL (140-400); RED BLOOD COUNT 5.11 x10^6/uL (4.30-5.70); RED CELL DISTRIBUTION WIDTH 13.8 % (11.5-14.5); WHITE BLOOD COUNT 10.8 x10^3/uL (4.0-11.0)
[2020-07-03 21:24] LABS: CALCIUM 8.9 mg/dL (8.5-10.1); GFR 83.2; POTASSIUM 3.7 mmol/L (3.5-5.1)
[2020-07-03 21:40] LABS: ACETAMIN < 2 mcg/mL (10-30)
[2020-07-03 21:41] LABS: ETHANOL < 10 mg/dL (0-10)
[2020-07-03 22:26] LABS: SALIC 4.6 mg/dL (2.8-20.0)
--- NOTE | 2020-07-03 22:36 | PHYS DOC ---
Past History Past Medical History: Anxiety, Bipolar, Bronchitis, Depression, Schizophrenia (MARTHA ANDREA MD) Past Surgical History: No Surgical History (MARTHA ANDREA MD) Smoking: Cigarettes Alcohol Use: None Drug Use: Amphetamine, Marijuana, Methamphetamine Social History Narrative: THIS AFTERNOON (MARTHA ANDREA MD) Adult General Chief Complaint Chief Complaint: HALLUCINATIONS AUDIBLE/VISUAL HPI HPI Patient is a 40-year-old male with a past medical history of schizophrenia, bipolar, anxiety and depression who presents to the emergency department with a chief complaint of visual and auditory hallucinations. States he has not had access to his medicines over the last month and has not taken them in has been having visual hallucinations, seeing people that are not there and audio hallucinations. States that the audio hallucinations are concerning and distressing as he hears them talking and they are telling him that he is worthless and bad things are going to happen to them. Patient denies overt suicidal ideation but does endorse worry about wanting to commit suicide. States that he does not want to start feeling that way and he is on age and feels that he is going in that direction. Denies any homicidal ideation. Patient amenable to admission. Denies headache, Covid/flu symptoms, chest pain, shortness of breath, abdominal pain, nausea, vomiting, dysuria, hematuria or blood in the stool. (MARTHA ANDREA MD) Review of Systems Review of Systems Review of systems otherwise unremarkable except noted in HPI (MARTHA ANDREA MD) Current Medications Current Medications Current Medications Medications (Trade) Dose Ordered Sig/Louisa Start Time Stop Time Status Last Admin Dose Admin Haloperidol Lactate (Haldol) 5 mg 1X ONCE 07/03/20 21:15 07/03/20 21:16 DC 07/03/20 22:19 5 MG Midazolam HCl (Versed) 2 mg 1X ONCE 07/03/20 21:15 07/03/20 21:16 DC 07/03/20 22:19 2 MG (MARTHA ANDREA MD) Allergies Allergies Allergies Coded Allergies Type Severity Reaction Last Updated Verified No Known Drug Allergies 04/07/20 No (MARTHA ANDREA MD) Physical Exam Physical Exam Constitutional: Well developed, well nourished, no acute distress, non-toxic appearance. [] HENT: Normocephalic, atraumatic, Eyes: PERRLA, EOMI, conjunctiva normal, no discharge. [] Neck: Normal range of motion, no tenderness, Cardiovascular:Heart rate regular rhythm, no murmur [] Lungs & Thorax: Bilateral breath sounds clear to auscultation [] Abdomen: soft, no tenderness, no masses, no pulsatile masses. [] Skin: Warm, dry, no erythema, no rash. [] Extremities: No tenderness, no cyanosis, no clubbing, ROM intact, no edema. [] Neurologic: Alert and oriented X 3, normal motor function, normal sensory function, no focal deficits noted. [] Psychologic: Patient awake alert and cooperative but appears anxious and endorses visual and auditory hallucinations. Denies homicidal ideation. Suicidal ideation is questionable however as patient denies it overtly but is making statements that he he is worried that he may end up doing something because he is so on edge. (MARTHA ANDREA MD) Physical Exam Constitutional: Well developed, well nourished, no acute distress, non-toxic appearance HENT: Normocephalic, atraumatic Eyes: PERRL, EOMI, conjunctiva normal, no discharge Neck: Normal range of motion, no tenderness, supple Lungs & Thorax: No respiratory distress, equal chest rise and fall Abdomen: Soft, no tenderness Skin: Warm, dry, no erythema, no rash Extremities: No tenderness, ROM intact, no edema Neurologic: Alert and oriented X 3, normal motor function, normal sensory function, no focal deficits noted Psychologic: Affect normal, judgment normal (RENETTA WELLS DO) Current Patient Data Vital Signs Vital Signs Date Time Temp Pulse Resp B/P (MAP) Pulse Ox O2 Delivery O2 Flow Rate FiO2 07/03/20 20:21 136 16 162/102 (122) 98 Room Air Lab Results Laboratory Tests Test 07/03/20 20:50 White Blood Count 10.8 x10^3/uL (4.0-11.0) Red Blood Count 5.11 x10^6/uL (4.30-5.70) Hemoglobin 15.1 g/dL (13.0-17.5) Hematocrit 44.8 % (39.0-53.0) Mean Corpuscular Volume 88 fL (79-100) Mean Corpuscular Hemoglobin 30 pg (25-35) Mean Corpuscular Hemoglobin Concent 34 g/dL (31-37) Red Cell Distribution Width 13.8 % (11.5-14.5) Platelet Count 290 x10^3/uL (140-400) Neutrophils (%) (Auto) 65 % (31-73) Lymphocytes (%) (Auto) 27 % (24-48) Monocytes (%) (Auto) 7 % (0-9) Eosinophils (%) (Auto) 0 % (0-3) Basophils (%) (Auto) 0 % (0-3) Neutrophils # (Auto) 7.1 x10^3uL (1.8-7.7) Lymphocytes # (Auto) 2.9 x10^3/uL (1.0-4.8) Monocytes # (Auto) 0.7 x10^3/uL (0.0-1.1) Eosinophils # (Auto) 0.0 x10^3/uL (0.0-0.7) Basophils # (Auto) 0.0 x10^3/uL (0.0-0.2) Sodium Level 136 mmol/L (136-145) Potassium Level 3.7 mmol/L (3.5-5.1) Chloride Level 99 mmol/L (98-107) Carbon Dioxide Level 23 mmol/L (21-32) Anion Gap 14 (6-14) Blood Urea Nitrogen 15 mg/dL (8-26) Creatinine 1.0 mg/dL (0.7-1.3) Estimated GFR (Cockcroft-Gault) 83.2 Glucose Level 117 mg/dL (70-99) H Calcium Level 8.9 mg/dL (8.5-10.1) Salicylates Level 4.6 mg/dL (2.8-20.0) Salicylate Last Dose Date Unknown Salicylate Last Dose Time Unknown Acetaminophen Level < 2 mcg/mL (10-30) L Acetaminophen Last Dose Date Unknown Acetaminophen Last Dose Time Unknown Ethyl Alcohol Level < 10 mg/dL (0-10) (MARTHA ANDREA MD) EKG EKG [] (MARTHA ANDREA MD) Radiology/Procedures Radiology/Procedures [] (MARTHA ANDREA MD) Heart Score Risk Factors: Risk Factors: DM, Current or recent (<one month) smoker, HTN, HLP, family history of CAD, obesity. Risk Scores: Risk Factors: DM, Current or recent (<one month) smoker, HTN, HLP, family history of CAD, obesity. (MARTHA ANDREA MD) Course & Med Decision Making Course & Med Decision Making Patient is a 40-year-old male that presents with visual and auditory hallucinations, anxiety and concerns about having thoughts of suicide although he states he technically is not actually thinking better right now. Vital signs not concerning. Physical exam noted above. PAT crab steamer evaluated who felt he would be appropriate for inpatient admission given the hallucinations, need for medication management and questionable suicidal ideation. Patient amenable to admission. Laboratory analysis not concerning. Acetaminophen/salicylate/ethanol normal. Covid pending. On reassessment patient stated that hallucinations had ceased and he was feeling better and was appreciative. Discussed placement with patient who was amenable. Patient care transferred to [facility] team pending discharge/placement. [] (MARTHA ANDREA MD) Course & Med Decision Making 0600- Sign out received from Dr. Andrea for schizophrenic patient with report of visual and auditory hallucinations. Patient previously had been screened by PAT team. Plan for patient to have re-evaluation for further management. 09- Evaluated by Abel ([facility]) who evaluated patient. Plan for patient to be discharged home with safety plan. [facility]. Patient stable for discharge with outpatient follow-up with PCP. Discussed findings and plan with patient, who acknowledges understanding and agreement. (RENETTA WELLS DO) Dragon Disclaimer Dragon Disclaimer This electronic medical record was generated, in whole or in part, using a voice recognition dictation system. (MARTHA ANDREA MD) Departure Departure: Impression: Primary Impression: Hallucinations Additional Impression: Schizophrenia Disposition: 01 DC HOME SELF CARE/HOMELESS Condition: STABLE Referrals: PCP,ISRAEL (PCP) Patient Instructions: Hallucinations and Delusions, Schizophrenia Additional Instructions: Please follow with [facility] for further evaluation and treatment. Problem Qualifiers Additional Impression: Schizophrenia Schizophrenia type: unspecified Qualified Codes: F20.9 - Schizophrenia, unspecified MARTHA ANDREA MD Jul 03, 2020 22:36 RENETTA WELLS DO Jul 04, 2020 06:45
[2020-07-03 22:46] LABS: BARBITURATES NEG (NEG); BENZODIAZEPINES NEG (NEG); CANNABINOIDS NEG (NEG); COCAINE NEG (NEG); METHADONE NEG (NEG); OPIATES NEG (NEG); PHENCYCLIDINE NEG (NEG)
[2020-07-03 22:47] LABS: AMPHETAMINE/METHAMPHETAMINE POS (NEG)
[2020-07-03 22:53] LABS: BILIRUBIN,URINE NEG (NEG); CLARITY,URINE CLEAR; COLOR,URINE YELLOW; GLUCOSE,URINE NEG (NEG)
[2020-07-03 22:54] LABS: BACTERIA,URINE 0 /HPF (0-FEW); NITRITE,URINE NEG (NEG); RBC,URINE 0 /HPF (0-2); SQUAMOUS EPITHELIAL CELL,UR OCC /LPF; UROBILINOGEN,URINE 0.2 mg/dL (0.2 mg/dL); WBC,URINE OCC /HPF (0-4)
== END 2020-07-04 09:55 | disposition home or self-care (01) ==
LOC: ER 20:21
DX: F20.9 Schizophrenia, unspecified (principal); F41.9 Anxiety disorder, unspecified; F31.9 Bipolar disorder, unspecified; F17.210 Nicotine dependence, cigarettes, uncomplicated; F15.10 Other stimulant abuse, uncomplicated; F12.10 Cannabis abuse, uncomplicated; Z20.822 Contact with and (suspected) exposure to COVID-19
CPT/HCPCS: 36415; 80048; 80307; 80329; 81001; 85025; 87426; 96372; 99284; G0480; J1630; J2250; U0003

== ENCOUNTER 2020-08-13 14:49 | Emergency (ER) | payer SELFPAY ==
[~2020-08-13] VITALS: Ht 175.3 cm; Wt 74.0 kg
--- NOTE | 2020-08-13 15:47 | PHYS DOC ---
Past History Past Medical History: Bipolar, Schizophrenia Past Surgical History: No Surgical History Smoking: Cigarettes Alcohol Use: Rarely Drug Use: Amphetamine, Marijuana, Methamphetamine General Adult EDM: Chief Complaint: PSYCH EVALUATION HPI: HPI: Patient is a 40-year-old male who presents with anxiety. Patient states that he uses methamphetamines. Last time patient used was last night. Patient is reporting paranoia and hearing voices. Patient denies SI or HI. Patient states that he is homeless and he has not been on any of his psych meds. [facility] an [facility] with [facility] but missed his appointment. Review of Systems: Review of Systems: Constitutional: Denies fever or chills Eyes: Denies change in visual acuity HENT: Denies nasal congestion or sore throat Respiratory: Denies cough or shortness of breath Cardiovascular: Denies chest pain or edema GI: Denies abdominal pain, nausea, vomiting, bloody stools or diarrhea : Denies dysuria Musculoskeletal: Denies back pain or joint pain Integument: Denies rash Neurologic: Denies headache, focal weakness or sensory changes Endocrine: Denies polyuria or polydipsia Lymphatic: Denies swollen glands Psychiatric: Denies depression reports anxiety Allergies: Allergies: Allergies Coded Allergies Type Severity Reaction Last Updated Verified No Known Drug Allergies 08/13/20 No Physical Exam: PE: Constitutional: Well developed, well nourished, no acute distress, non-toxic appearance. [] HENT: Normocephalic, atraumatic, bilateral external ears normal, oropharynx moist, no oral exudates, nose normal. [] Eyes: PERRLA, EOMI, conjunctiva normal, no discharge. [] Neck: Normal range of motion, no tenderness, supple, no stridor. [] Cardiovascular:Heart rate regular rhythm, no murmur [] Lungs & Thorax: Bilateral breath sounds clear to auscultation [] Abdomen: Bowel sounds normal, soft, no tenderness, no masses, no pulsatile masses. [] Skin: Warm, dry, no erythema, no rash. [] Back: No tenderness, no CVA tenderness. [] Extremities: No tenderness, no cyanosis, no clubbing, ROM intact, no edema. [] Neurologic: Alert and oriented X 3, normal motor function, normal sensory function, no focal deficits noted. [] Psychologic: Anxious, hallucination Current Patient Data: Vital Signs: Vital Signs Date Time Temp Pulse Resp B/P (MAP) Pulse Ox O2 Delivery O2 Flow Rate FiO2 08/13/20 15:09 97.7 123 18 111/92 (98) 96 Room Air EKG: EKG: [] Radiology/Procedures: Radiology/Procedures: [] Heart Score: Risk Factors: Risk Factors: DM, Current or recent (<one month) smoker, HTN, HLP, family history of CAD, obesity. Risk Scores: Score 0 - 3: 2.5% MACE over next 6 weeks - Discharge Home Score 4 - 6: 20.3% MACE over next 6 weeks - Admit for Clinical Observation Score 7 - 10: 72.7% MACE over next 6 weeks - Early Invasive Strategies Course & Med Decision Making: Course & Med Decision Making Pertinent Labs and Imaging studies reviewed. (See chart for details) []Patient is a 40-year-old male who presents with anxiety. Patient states that he uses methamphetamines. Last time patient used was last night. Patient is reporting paranoia and hearing voices. Patient denies SI or HI. Patient states that he is homeless and he has not been on any of his psych meds. Patient had an appointment with the [facility] but missed his appointment. Ativan given for anxiety. Brianda from the PAT team is here and will talk to the patient. Brianda spoke with patient about being admitted to [facility]. Patient agrees with this plan. Labs, UA and Covid test ordered. Will fax results to [facility] once they received. Patient is going to be transported to [facility] with his sponsor who is at bedside. IM Akil ordered for anxiety. Labs all unremarkable. UA is negative for infection. UDS positive for methamphetamines. Covid negative. Dragon Disclaimer: Samuel Disclaimer: This electronic medical record was generated, in whole or in part, using a voice recognition dictation system. Departure Departure: Impression: Primary Impression: Anxiety Additional Impression: Substance abuse Disposition: 01 DC HOME SELF CARE/HOMELESS Condition: STABLE Referrals: PCP,NO (PCP) Patient Instructions: Anxiety and Panic Attacks, [id number], Substance Abuse- Brief Additional Instructions: EMERGENCY DEPARTMENT GENERAL DISCHARGE INSTRUCTIONS Thank you for coming to [facility] (ED) today and trusting us with you care. We trust that you had a positivie experience in our Emergency Department. If you wish to speak to the department management, you may call the director at [phone]. YOUR FOLLOW UP INSTRUCTIONS ARE FOLLOWS: 1. Do you have a private Doctor? If you do not have a private doctor, please a sk for a resource list of physicians or clinics that may be able to assist you with follow up care. 2. The Emergency Physician has interpreted your x-rays. The X-Ray specialist will also review them. If there is a change in the findings, you will be notified in 48 hours when at all possible. 3. A lab test or culture has been done, your results will be reviewed and you will be notified if you need a change in treatment. ADDITIONAL INSTRUCTIONS AND INFORMATION: 1. Your care today has been supervised by a physician who is specially trained in emergency care. Many problems require more than one evaluation for a complete diagnosis and treatment. We recommend that you schedule your follow up appointment as recommended to ensure complete treatment of you illness or injury. If you are unable to obtain follow up care and continue to have a problem, or if your condition worsens, we recommend that you return to the ED. 2. We are not able to safely determine your condition over the phone nor are we able to give sound medical advice over the phone. For these safety reasons, if you call for medical advice we will ask you to come to the ED for further evaluation. 3. If you have any questions regarding these discharge instructions please call the ED at [phone]. SAFETY INFORMATION: In the interest of safety, wellness, and injury prevention; we encourage you to wear your sealbelt, if you smoke; quite smoking, and we encourage family to use a protective helmet for bicycling and other sporting events that present an increased risk for head injury. IF YOUR SYMPTOMS WORSEN OR NEW SYMPTOMS DEVELOP, OR YOU HAVE CONCERNS ABOUT YOUR CONDITION; OR IF YOUR CONDITION WORSENS WHILE YOU ARE WAITING FOR YOUR FOLLOW UP APPOINTMENT; EITHER CONTACT YOUR PRIMARY CARE DOCTOR, THE PHYSICIAN WHOSE NAME AND NUMBER YOU WERE GIVEN, OR RETURN TO THE ED IMMEDIATELY. JOVANI GOYAL APRN Aug 13, 2020 15:47
[2020-08-13] MEDS ORDERED: LORazepam 1 MG TABLET PO ONE (16:00)
[2020-08-13 16:31] LABS: BASO % 0 % (0-3); EOS % 0 % (0-3); HEMATOCRIT 41.7 % (39.0-53.0); LYMPH # 2.4 x10^3/uL (1.0-4.8); LYMPH % 23 % (24-48); MEAN CORPUSCULAR HEMOGLOBIN 30 pg (25-35); MEAN CORPUSCULAR HGB CONC 34 g/dL (31-37); MEAN CORPUSCULAR VOLUME 88 fL (79-100); MONO # 0.9 x10^3/uL (0.0-1.1); MONO % 8 % (0-9); NEUT # 7.1 x10^3uL (1.8-7.7); NEUT % 68 % (31-73); PLATELET COUNT 277 x10^3/uL (140-400); RED BLOOD COUNT 4.73 x10^6/uL (4.30-5.70); WHITE BLOOD COUNT 10.5 x10^3/uL (4.0-11.0)
[2020-08-13 16:42] LABS: CALCIUM 8.4 mg/dL (8.5-10.1); CREATININE 1.1 mg/dL (0.7-1.3); GFR 74.5; POTASSIUM 3.4 mmol/L (3.5-5.1)
[2020-08-13 16:43] LABS: CLARITY,URINE CLEAR; COLOR,URINE AMBER
[2020-08-13 16:44] LABS: BARBITURATES NEG (NEG); BENZODIAZEPINES NEG (NEG); BILIRUBIN,URINE SMALL (NEG); CANNABINOIDS NEG (NEG); COCAINE NEG (NEG); GLUCOSE,URINE NEG (NEG); METHADONE NEG (NEG); NITRITE,URINE NEG (NEG); OPIATES NEG (NEG); PHENCYCLIDINE NEG (NEG); UROBILINOGEN,URINE 0.2 mg/dL (0.2 mg/dL)
[2020-08-13 16:46] LABS: BACTERIA,URINE 0 /HPF (0-FEW); RBC,URINE 0 /HPF (0-2); WBC,URINE 0 /HPF (0-4)
[2020-08-13 16:47] LABS: AMPHETAMINE/METHAMPHETAMINE POS (NEG)
[2020-08-13 16:53] VITALS: BP 139/87
[2020-08-13] MEDS ORDERED: ZIPRASIDONE IM 20 MG VIAL. IM ONE (17:00)
== END 2020-08-13 17:11 | disposition home or self-care (01) ==
LOC: ER 14:49
DX: F41.9 Anxiety disorder, unspecified (principal); Z20.822 Contact with and (suspected) exposure to COVID-19; F19.10 Other psychoactive substance abuse, uncomplicated; Z59.0 Homelessness; F31.9 Bipolar disorder, unspecified; F20.9 Schizophrenia, unspecified; F17.210 Nicotine dependence, cigarettes, uncomplicated
CPT/HCPCS: 36415; 80048; 80307; 81001; 85025; 87426; 96372; 99283; C9803; J3486; U0003

== ENCOUNTER 2021-03-31 17:11 | Emergency (ER) | payer SELFPAY ==
[~2021-03-31] VITALS: Ht 177.8 cm; Wt 68.0 kg
--- NOTE | 2021-03-31 17:41 | PHYS DOC ---
Past History Past Medical History: Bipolar, Schizophrenia Additional Past Medical Histor: schizzoaffective disorder (CAROLINA GONZALEZ APRN) Past Surgical History: No Surgical History (CAROLINA GONZALEZ APRN) Smoking: Cigarettes Alcohol Use: Rarely Drug Use: Amphetamine, Marijuana, Methamphetamine (CAROLINA GONZALEZ APRN) General Adult EDM: Chief Complaint: PSYCH EVALUATION HPI: HPI: Patient is a 40-year-old male who presents to the emergency department for complaints of psych evaluation. Patient reports that he has schizoaffective disorder and also uses meth. He states that he last used meth 2 hours ago. Patient is seeking placement for inpatient psychiatric hospitalization as well as detox from methamphetamines. Patient reports he follows up outpatient with the [facility]. He states that he has been inpatient recently at [facility]. He is requesting to go to [facility] as he states he feels like he needs a longer inpatient stay. Patient used to take risperidone but has been off of it for about 2.5 to 3 weeks. Patient denies any suicidal ideation. He states that he has attempted suicide in the past but it was greater than 3 months ago. He states that he is having visual and auditory hallucinations. When asked if patient has any homicidal ideation he states that he does not want to hurt anybody but the voices have a mind of their own. Patient denies any additional drug use or alcohol use. Patient is noted to be tachycardic in the ER he is alert and oriented x4. (CAROLINA GONZALEZ APRN) Review of Systems: Review of Systems: 14 body systems of the review of systems have been reviewed. See HPI for pertinent positive and negative responses, otherwise all other systems are negative, nonpertinent or noncontributory (CAROLINA GONZALEZ APRN) Allergies: Allergies: Allergies Coded Allergies Type Severity Reaction Last Updated Verified No Known Drug Allergies 03/31/21 No (CAROLINA GONZALEZ APRN) Physical Exam: PE: Constitutional: Well developed, well nourished, no acute distress, non-toxic appearance. [] HENT: Normocephalic, atraumatic, bilateral external ears normal, oropharynx moist, no oral exudates, nose normal. [] Eyes: PERRLA, 2 mm bilaterally, EOMI, conjunctiva normal, no discharge. [] Neck: Normal range of motion, no stridor Cardiovascular:Heart rate tachycardic rhythm, no murmur [] Lungs & Thorax: Bilateral breath sounds clear to auscultation [] Abdomen: Bowel sounds normal, soft, no tenderness, no masses, no pulsatile masses. [] Skin: Warm, dry, no erythema, no rash. [] Back: Normal range of motion Extremities: No tenderness, no cyanosis, no clubbing, ROM intact, no edema. [] Neurologic: Alert and oriented X 3, normal motor function, normal sensory function, no focal deficits noted. [] Psychologic: Affect normal, judgement normal, mood normal. [] (CAROLINA GONZALEZ APRN) Current Patient Data: Labs: Laboratory Tests Test 03/31/21 17:51 White Blood Count 11.0 x10^3/uL Red Blood Count 4.27 x10^6/uL Hemoglobin 13.4 g/dL Hematocrit 38.8 % Mean Corpuscular Volume 91 fL Mean Corpuscular Hemoglobin 32 pg Mean Corpuscular Hemoglobin Concent 35 g/dL Red Cell Distribution Width 13.3 % Platelet Count 292 x10^3/uL Neutrophils (%) (Auto) 73 % Lymphocytes (%) (Auto) 18 % Monocytes (%) (Auto) 9 % Eosinophils (%) (Auto) 1 % Basophils (%) (Auto) 0 % Neutrophils # (Auto) 8.0 x10^3uL Lymphocytes # (Auto) 1.9 x10^3/uL Monocytes # (Auto) 1.0 x10^3/uL Eosinophils # (Auto) 0.1 x10^3/uL Basophils # (Auto) 0.0 x10^3/uL Sodium Level 140 mmol/L Potassium Level 3.5 mmol/L Chloride Level 104 mmol/L Carbon Dioxide Level 25 mmol/L Anion Gap 11 Blood Urea Nitrogen 14 mg/dL Creatinine 1.1 mg/dL Estimated GFR (Cockcroft-Gault) 74.5 BUN/Creatinine Ratio 13 Glucose Level 95 mg/dL Calcium Level 8.6 mg/dL Total Bilirubin 0.6 mg/dL Aspartate Amino Transf (AST/SGOT) 32 U/L Alanine Aminotransferase (ALT/SGPT) 66 U/L Alkaline Phosphatase 50 U/L Troponin I Quantitative < 0.017 ng/mL Total Protein 7.2 g/dL Albumin 4.0 g/dL Albumin/Globulin Ratio 1.3 Ethyl Alcohol Level < 10 mg/dL Current Medications Medications (Trade) Dose Ordered Sig/Louisa Route PRN Reason Start Time Stop Time Status Last Admin Dose Admin Sodium Chloride 1,000 ml @ 1,000 mls/hr 1X ONCE IV 03/31/21 17:45 03/31/21 18:44 DC 03/31/21 18:16 Vital Signs: Vital Signs Date Time Temp Pulse Resp B/P (MAP) Pulse Ox O2 Delivery O2 Flow Rate FiO2 03/31/21 17:24 98.3 74 18 124/77 (93) 94 Room Air (CAROLINA GONZALEZ APRN) EKG: EKG: [] EKG performed by ER staff at 1741 shows sinus tachycardia at a rate of 118, no STEMI read by Dr. Burgess at 1747. (CAROLINA GONZALEZ APRN) Radiology/Procedures: Radiology/Procedures: [] (CAROLINA GONZALEZ APRN) Heart Score: C/O Chest Pain: N/A Risk Factors: Risk Factors: DM, Current or recent (<one month) smoker, HTN, HLP, family history of CAD, obesity. Risk Scores: Score 0 - 3: 2.5% MACE over next 6 weeks - Discharge Home Score 4 - 6: 20.3% MACE over next 6 weeks - Admit for Clinical Observation Score 7 - 10: 72.7% MACE over next 6 weeks - Early Invasive Strategies (CAROLINA GONZALEZ APRN) Course & Med Decision Making: Course & Med Decision Making Pertinent Labs and Imaging studies reviewed. (See chart for details) [] Patient presents to the emergency department for psych evaluation. Patient is seeking inpatient psychiatric admission and detox from methamphetamines. Patient needs to be medically cleared. Blood work, EKG performed in the ER. Due to tachycardia, an IV was started and patient was given normal saline. It is likely that patient is tachycardic due to his recent meth use within the last 2 hours. Patient to be evaluated by the psychiatric assessment team. Patient medically cleared as lab work was unremarkable.. Patient was evaluated by the psychiatric assessment team. There were detox facility beds available but patient stated that he does not want to have inpatient detox. He states that he will like to detox at home. He will follow up with the [facility] and he was given information on the [facility]. He states that he does not have transportation I informed him that we could arrange transportation to the detox facility if he was willing to go and he refused. Patient also states that they will hold me for 3 days and then discharge me home and I do not want that any to be in longer I told him that he does not know how long he would be in the facility and he should keep an open mind, he refused stating that he wants to go home. Patient is alert and oriented x4 his vital signs are stable. His heart rate has returned to normal rate at 95. Patient discharged home with resources provided by a member of the psychiatric assessment team. I discussed with patient all findings and diagnostic testing as well as the need to follow-up with PCP for further evaluation and treatment or return to the ER if any new or worsening symptoms. Strict return precautions were also discussed at length. Patient voiced understanding and agreement with the plan. Patient is hemodynamically stable at the time of disposition. (CAROLINA GONZALEZ APRN) Dragon Disclaimer: Dragon Disclaimer: This electronic medical record was generated, in whole or in part, using a voice recognition dictation system. (CAROLINA GONZALEZ APRN) Attending Co-Sign The patient was seen and interviewed as well as examined at the bedside. The chart was reviewed. The case was discussed. Agree with the plan of care. (DARRELL BENAVIDEZ DO) Departure Departure: Impression: Primary Impression: Encounter for psychiatric assessment Additional Impression: Drug abuse Disposition: 01 HOME / SELF CARE / HOMELESS Condition: GOOD Referrals: PCP,NO (PCP) Patient Instructions: Alcohol and Drug Addiction, Finding Treatment Additional Instructions: You were seen in the emergency department for psychiatric evaluation and possible detox placement. You were evaluated by a member of the psychiatric assessment team. You stated that you did not want to have inpatient detox placement. Resources regarding [facility]. [facility]. You need to follow-up with the [facility] that you can get on some medications for your schizoaffective disorder. Please return to the emergency department if you want detox placement in the future or you have any thoughts of wanting to hurt yourself or others or have worsening of your hallucinations. EMERGENCY DEPARTMENT GENERAL DISCHARGE INSTRUCTIONS Thank you for coming to [facility] (ED) today and trusting us with you care. We trust that you had a positivie experience in our Emergency Department. If you wish to speak to the department management, you may call the director at [phone]. YOUR FOLLOW UP INSTRUCTIONS ARE FOLLOWS: 1. Do you have a private Doctor? If you do not have a private doctor, please ask for a resource list of physicians or clinics that may be able to assist you with follow up care. 2. The Emergency Physician has interpreted your x-rays. The X-Ray specialist will also review them. If there is a change in the findings, you will be notified in 48 hours when at all possible. 3. A lab test or culture has been done, your results will be reviewed and you will be notified if you need a change in treatment. ADDITIONAL INSTRUCTIONS AND INFORMATION: 1. Your care today has been supervised by a physician who is specially trained in emergency care. Many problems require more than one evaluation for a complete diagnosis and treatment. We recommend that you schedule your follow up appointment as recommended to ensure complete treatment of you illness or injury. If you are unable to obtain follow up care and continue to have a problem, or if your condition worsens, we recommend that you return to the ED. 2. We are not able to safely determine your condition over the phone nor are we able to give sound medical advice over the phone. For these safety reasons, if you call for medical advice we will ask you to come to the ED for further evaluation. 3. If you have any questions regarding these discharge instructions please call the ED at [phone]. SAFETY INFORMATION: In the interest of safety, wellness, and injury prevention; we encourage you to wear your sealbelt, if you smoke; quite smoking, and we encourage family to use a protective helmet for bicycling and other sporting events that present an increased risk for head injury. IF YOUR SYMPTOMS WORSEN OR NEW SYMPTOMS DEVELOP, OR YOU HAVE CONCERNS ABOUT YOUR CONDITION; OR IF YOUR CONDITION WORSENS WHILE YOU ARE WAITING FOR YOUR FOLLOW UP APPOINTMENT; EITHER CONTACT YOUR PRIMARY CARE DOCTOR, THE PHYSICIAN WHOSE NAME AND NUMBER YOU WERE GIVEN, OR RETURN TO THE ED IMMEDIATELY. CAROLINA GONZALEZ APRN Mar 31, 2021 17:41 DARRELL BENAVIDEZ DO Apr 01, 2021 19:42
--- NOTE | 2021-03-31 17:49 | EKG ---
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
[2021-03-31] MEDS: IV NORMAL SALINE 1,000ML 1,000 ML IV ONE (18:16)
[2021-03-31 18:46] LABS: BASO % 0 % (0-3); EOS # 0.1 x10^3/uL (0.0-0.7); EOS % 1 % (0-3); HEMATOCRIT 38.8 % (39.0-53.0); HEMOGLOBIN 13.4 g/dL (13.0-17.5); LYMPH # 1.9 x10^3/uL (1.0-4.8); LYMPH % 18 % (24-48); MEAN CORPUSCULAR HEMOGLOBIN 32 pg (25-35); MEAN CORPUSCULAR HGB CONC 35 g/dL (31-37); MEAN CORPUSCULAR VOLUME 91 fL (79-100); MONO % 9 % (0-9); NEUT % 73 % (31-73); PLATELET COUNT 292 x10^3/uL (140-400); RED BLOOD COUNT 4.27 x10^6/uL (4.30-5.70); RED CELL DISTRIBUTION WIDTH 13.3 % (11.5-14.5)
[2021-03-31 18:55] LABS: CALCIUM 8.6 mg/dL (8.5-10.1); CREATININE 1.1 mg/dL (0.7-1.3); GFR 74.5; POTASSIUM 3.5 mmol/L (3.5-5.1)
[2021-03-31 19:08] LABS: ALBUMIN/GLOBULIN RATIO 1.3 (1.0-1.7); TOTAL BILIRUBIN 0.6 mg/dL (0.2-1.0); TOTAL PROTEIN 7.2 g/dL (6.4-8.2)
[2021-03-31 21:20] VITALS: BP 134/104
== END 2021-03-31 21:30 | disposition home or self-care (01) ==
LOC: ER 17:11
DX: Z00.8 Encounter for other general examination (principal); F19.10 Other psychoactive substance abuse, uncomplicated; F31.9 Bipolar disorder, unspecified; F20.9 Schizophrenia, unspecified; F17.210 Nicotine dependence, cigarettes, uncomplicated; F15.10 Other stimulant abuse, uncomplicated; F12.10 Cannabis abuse, uncomplicated
CPT/HCPCS: 36415; 80053; 84484; 85025; 93005; 96360; 96361; 99284; G0480; J7030

== ENCOUNTER 2021-03-31 23:20 | Emergency (ER) | payer SELFPAY ==
[~2021-03-31] VITALS: Ht 177.8 cm; Wt 68.0 kg
--- NOTE | 2021-03-31 23:40 | PHYS DOC ---
Past History Past Medical History: Bipolar, Schizophrenia Additional Past Medical Histor: schizzoaffective disorder Past Surgical History: No Surgical History Smoking: Cigarettes Alcohol Use: None Drug Use: Amphetamine, Marijuana, Methamphetamine General Adult EDM: Chief Complaint: DRUG ABUSE HPI: HPI: 40-year-old male returns the emergency room after being discharged about an hour ago with behavior and restlessness. [facility] was [facility] the [facility] and was acting strangely so they called EMS. The patient denies that he has been doing drugs. He refused to give us urine at his last visit. He has no explanation for his fidgety behavior. He denies any other concerns at this time. He is thirsty. Review of Systems: Review of Systems: Constitutional: Denies fever or chills Eyes: Denies change in visual acuity HENT: Denies nasal congestion or sore throat Respiratory: Denies cough or shortness of breath Cardiovascular: Denies chest pain or edema GI: Denies abdominal pain, nausea, vomiting, bloody stools or diarrhea : Denies dysuria Musculoskeletal: Denies back pain or joint pain Integument: Denies rash Neurologic: Denies headache, focal weakness or sensory changes Endocrine: Denies polyuria or polydipsia Lymphatic: Denies swollen glands Psychiatric: anxiety Current Medications: Current Meds: Current Medications Medications (Trade) Dose Ordered Sig/Louisa Start Time Stop Time Status Last Admin Dose Admin Lorazepam (Ativan Inj) 2 mg 1X ONCE 03/31/21 23:30 03/31/21 23:31 DC Allergies: Allergies: Allergies Coded Allergies Type Severity Reaction Last Updated Verified No Known Drug Allergies 03/31/21 No Physical Exam: PE: Constitutional: Well developed, well nourished, no acute distress, non-toxic appearance. [] HENT: Normocephalic, atraumatic, bilateral external ears normal, oropharynx moist, no oral exudates, nose normal. [] Eyes: PERRLA, EOMI, conjunctiva normal, no discharge. [] Neck: Normal range of motion, no tenderness, supple, no stridor. [] Cardiovascular: Heart rate regular rhythm, no murmur [] Lungs & Thorax: Bilateral breath sounds clear to auscultation [] Abdomen: Bowel sounds normal, soft, no tenderness, no masses, no pulsatile masses. [] Skin: Warm, dry, no erythema, no rash. [] Back: No tenderness, no CVA tenderness. [] Extremities: No tenderness, no cyanosis, no clubbing, ROM intact, no edema. [] Neurologic: Alert and oriented X 3, normal motor function, normal sensory function, no focal deficits noted. [] Psychologic: Affect restless, mood anxious. Current Patient Data: Vital Signs: Vital Signs Date Time Temp Pulse Resp B/P (MAP) Pulse Ox O2 Delivery O2 Flow Rate FiO2 03/31/21 23:22 98.2 120 16 134/104 (114) EKG: EKG: [] Radiology/Procedures: Radiology/Procedures: [] Heart Score: C/O Chest Pain: N/A Risk Factors: Risk Factors: DM, Current or recent (<one month) smoker, HTN, HLP, family history of CAD, obesity. Risk Scores: Score 0 - 3: 2.5% MACE over next 6 weeks - Discharge Home Score 4 - 6: 20.3% MACE over next 6 weeks - Admit for Clinical Observation Score 7 - 10: 72.7% MACE over next 6 weeks - Early Invasive Strategies Course & Med Decision Making: Course & Med Decision Making Pertinent Labs and Imaging studies reviewed. (See chart for details) The patient's urinalysis is significant for methamphetamines. I have given the patient 2 mg of Ativan IM. This has settled down the patient significantly. I have no medical reason to keep the patient in the hospital. He is stable for discharge at this time. [] Dragon Disclaimer: Dragon Disclaimer: This electronic medical record was generated, in whole or in part, using a voice recognition dictation system. Departure Departure: Impression: Primary Impression: Methamphetamine abuse Disposition: HOME / SELF CARE / HOMELESS Condition: STABLE Referrals: PCP,NO (PCP) Patient Instructions: Methamphetamine Abuse, Complications DARRELL BENAVIDEZ DO Mar 31, 2021 23:40
[2021-03-31 23:52] LABS: BARBITURATES NEG (NEG); BENZODIAZEPINES NEG (NEG); CANNABINOIDS NEG (NEG); COCAINE NEG (NEG); METHADONE NEG (NEG); OPIATES NEG (NEG); PHENCYCLIDINE NEG (NEG)
[2021-03-31 23:53] LABS: AMPHETAMINE/METHAMPHETAMINE POS (NEG)
[2021-03-31 23:55] LABS: BACTERIA,URINE 0 /HPF (0-FEW); BILIRUBIN,URINE NEG (NEG); CLARITY,URINE CLEAR; COLOR,URINE YELLOW; GLUCOSE,URINE NEG (NEG); NITRITE,URINE NEG (NEG); RBC,URINE 0 /HPF (0-2); SQUAMOUS EPITHELIAL CELL,UR OCC /LPF; UROBILINOGEN,URINE 0.2 mg/dL (0.2 mg/dL); WBC,URINE RARE /HPF (0-4)
[2021-04-01] MEDS ORDERED: LORazepam 1 MG TABLET PO ONE ×2 (00:15→03:45)
[2021-04-01 03:45] VITALS: BP 140/82
== END 2021-04-01 04:00 | disposition home or self-care (01) ==
LOC: ER 23:20
DX: F15.10 Other stimulant abuse, uncomplicated (principal); F31.9 Bipolar disorder, unspecified; F20.9 Schizophrenia, unspecified; F17.200 Nicotine dependence, unspecified, uncomplicated; F12.10 Cannabis abuse, uncomplicated
CPT/HCPCS: 36415; 80307; 81001; 96372; 99283; J2060